=== PATIENT | male | born 2000 | race Caucasian/White ===

== ENCOUNTER 2019-05-31 22:15 | Emergency (ER) | payer OTHER ==
[~2019-05-31] VITALS: Ht 185 cm; Wt 61.4 kg
--- NOTE | 2019-05-31 22:30 | NUR ---
urine specimen requested, pt denies being able to void at this time.
[2019-05-31 22:49] LABS: BASOPHILS % (AUTO) 0 % (0-10); EOSINOPHILS % (AUTO) 1 % (0-10); HEMATOCRIT 42 % (40-54); HEMOGLOBIN 14.8 G/DL (13.3-17.7); LYMPHOCYTES # (AUTO) 1.5 X 10^3 (1.0-4.0); LYMPHOCYTES % (AUTO) 25 % (12-44); MEAN CORPUSCULAR HEMOGLOBIN 31 PG (25-34); MEAN CORPUSCULAR HGB CONC 36 G/DL (32-36); MEAN CORPUSCULAR VOLUME 88 FL (80-99); MEAN PLATELET VOLUME 10.2 FL (7.4-10.4); MONOCYTES # (AUTO) 0.8 X 10^3 (0.0-1.0); MONOCYTES % (AUTO) 13 % (0-12); NEUTROPHILS # (AUTO) 3.8 X 10^3 (1.8-7.8); NEUTROPHILS % (AUTO) 62 % (42-75); PLATELET COUNT 235 10^3/uL (130-400); WHITE BLOOD COUNT 6.1 10^3/uL (4.3-11.0)
--- NOTE | 2019-05-31 22:59 | ED Syncope ---
General Chief Complaint: Dizziness/Syncope Stated Complaint: PASSED OUT AT HOME Nursing Triage Note: syncopal episode approx. 2144. denies injury Source of Information: Patient Exam Limitations: No Limitations History of Present Illness Date Seen by Provider: May 31, 2019 Time Seen by Provider: 22:45 Initial Comments Patient presents to ER by private conveyance with aunt and father and chief complaint that about an hour ago he had a syncopal episode while standing up to urinate. He says been having some intermittent sharp pains in his right inguinal him and one occurred just prior to passing out. 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 He is not having any nausea. He's had no abdominal surgeries. He has no significant medical history. He does not take any medicines. He denies drinking, smoking, tobacco, recreational drugs. He thinks he was only out for a few seconds. He says his uncle came down the cat when he heard him fall. He was able to stand up on his own without any assistance. He has never had anything like this before. No history of kidney stones. No hematuria or painful urination. No constipation diarrhea or nausea. Allergies and Home Medications Allergies Coded Allergies: No Known Drug Allergies (Unverified , 05/31/19) Home Medications No Active Prescriptions or Reported Meds Patient Home Medication List Home Medication List Reviewed: Yes Review of Systems Constitutional: No chills, No diaphoresis EENTM: No ear discharge, No ear pain Respiratory: No cough, No short of breath Cardiovascular: No chest pain, No edema Gastrointestinal: abdominal pain; No constipation, No diarrhea, No nausea Genitourinary: No discharge, No dysuria Musculoskeletal: No back pain, No joint pain Skin: No pruritus, No rash Psychiatric/Neurological: Denies Headache, Denies Numbness, Denies Paresthesia Past Ttscbjr-Siclna-Egiojd Hx Patient Social History Alcohol Use: Denies Use Recreational Drug Use: No Smoking Status: Never a Smoker 2nd Hand Smoke Exposure: No Recent Foreign Travel: No Contact w/Someone Who Travel: No Recent Infectious Disease Expo: No Recent Hopitalizations: No Physical Abuse: No Sexual Abuse: No Mistreated: No Fear: No Immunizations Up To Date Tetanus Booster (TDap): Less than 5yrs PED Vaccines UTD: Yes Seasonal Allergies Seasonal Allergies: No Past Medical History Surgeries: No Respiratory: No Cardiac: No Neurological: No Genitourinary: No Gastrointestinal: No Musculoskeletal: No Endocrine: No HEENT: No Cancer: No Psychosocial: No Integumentary: No Blood Disorders: No Physical Exam Vital Signs Vital Signs - First Documented 05/31/19 22:28 Temp 36.5 Pulse 91 Resp 18 B/P (MAP) 143/85 O2 Delivery Room Air Capillary Refill : Height, Weight, BMI Height: '" Weight: lbs. oz. kg; 17.00 BMI Method: General Appearance: No Apparent Distress, WD/WN HEENT: Normal ENT Inspection, Pharynx Normal Neck: Full Range of Motion, Normal Inspection, Non Tender Cardiovascular: Regular Rate, Rhythm, No Edema, Normal Peripheral Pulses Respiratory: Chest Non Tender, Lungs Clear, Normal Breath Sounds, No Accessory Muscle Use Gastrointestinal: Normal Bowel Sounds, No Organomegaly, Non Tender, Soft, Other (small palpable indirect hernia right inguinal canal) Extremities: Normal Capillary Refill, Normal Inspection, No Pedal Edema Neurologic/Psychiatric: Alert, Oriented x3 Cranial Nerves: Normal Hearing, Normal Speech Motor/Sensory: No Motor Deficit, No Sensory Deficit Skin: Normal Color, Warm/Dry Progress/Results/Core Measures Results/Orders Lab Results Laboratory Tests Test 05/31/19 22:40 05/31/19 23:35 Range/Units White Blood Count 6.1 4.3-11.0 10^3/uL Red Blood Count 4.73 4.35-5.85 10^6/uL Hemoglobin 14.8 13.3-17.7 G/DL Hematocrit 42 40-54 % Mean Corpuscular Volume 88 80-99 FL Mean Corpuscular Hemoglobin 31 25-34 PG Mean Corpuscular Hemoglobin Concent 36 32-36 G/DL Red Cell Distribution Width 12.0 10.0-14.5 % Platelet Count 235 130-400 10^3/uL Mean Platelet Volume 10.2 7.4-10.4 FL Neutrophils (%) (Auto) 62 42-75 % Lymphocytes (%) (Auto) 25 12-44 % Monocytes (%) (Auto) 13 H 0-12 % Eosinophils (%) (Auto) 1 0-10 % Basophils (%) (Auto) 0 0-10 % Neutrophils # (Auto) 3.8 1.8-7.8 X 10^3 Lymphocytes # (Auto) 1.5 1.0-4.0 X 10^3 Monocytes # (Auto) 0.8 0.0-1.0 X 10^3 Eosinophils # (Auto) 0.0 0.0-0.3 10^3/uL Basophils # (Auto) 0.0 0.0-0.1 10^3/uL Sodium Level 137 135-145 MMOL/L Potassium Level 3.2 L 3.6-5.0 MMOL/L Chloride Level 103 98-107 MMOL/L Carbon Dioxide Level 23 21-32 MMOL/L Anion Gap 11 5-14 MMOL/L Blood Urea Nitrogen 11 7-18 MG/DL Creatinine 0.99 0.60-1.30 MG/DL Estimat Glomerular Filtration Rate > 60 BUN/Creatinine Ratio 11 Glucose Level 193 H 70-105 MG/DL Calcium Level 9.1 8.5-10.1 MG/DL Corrected Calcium 8.7 8.5-10.1 MG/DL Total Bilirubin 0.5 0.1-1.0 MG/DL Aspartate Amino Transf (AST/SGOT) 18 5-34 U/L Alanine Aminotransferase (ALT/SGPT) 28 0-55 U/L Alkaline Phosphatase 87 40-136 U/L Troponin I < 0.028 <0.028 NG/ML C-Reactive Protein High Sensitivity 1.04 H 0.00-0.50 MG/DL B-Type Natriuretic Peptide < 10.0 <100.0 PG/ML Total Protein 7.0 6.4-8.2 GM/DL Albumin 4.5 3.2-4.5 GM/DL Urine Color YELLOW Urine Clarity CLEAR Urine pH 6.0 5-9 Urine Specific [place] 1.025 H 1.016-1.022 Urine Protein NEGATIVE NEGATIVE Urine Glucose (UA) NEGATIVE NEGATIVE Urine Ketones NEGATIVE NEGATIVE Urine Nitrite NEGATIVE NEGATIVE Urine Bilirubin NEGATIVE NEGATIVE Urine Urobilinogen 0.2 < = 1.0 MG/DL Urine Leukocyte Esterase NEGATIVE NEGATIVE Urine RBC (Auto) NEGATIVE NEGATIVE Urine RBC NONE /HPF Urine WBC 0-2 /HPF Urine Squamous Epithelial Cells RARE /HPF Urine Crystals PRESENT H /LPF Urine Amorphous Sediment FEW KAYA URATES H /LPF Urine Bacteria TRACE /HPF Urine Casts NONE /LPF Urine Mucus SMALL H /LPF Urine Culture Indicated NO Urine Opiates Screen NEGATIVE NEGATIVE Urine Oxycodone Screen NEGATIVE NEGATIVE Urine Methadone Screen NEGATIVE NEGATIVE Urine Propoxyphene Screen NEGATIVE NEGATIVE Urine Barbiturates Screen NEGATIVE NEGATIVE Ur Tricyclic Antidepressants Screen NEGATIVE NEGATIVE Urine Phencyclidine Screen NEGATIVE NEGATIVE Urine Amphetamines Screen NEGATIVE NEGATIVE Urine Methamphetamines Screen NEGATIVE NEGATIVE Urine Benzodiazepines Screen NEGATIVE NEGATIVE Urine Cocaine Screen NEGATIVE NEGATIVE Urine Cannabinoids Screen NEGATIVE NEGATIVE My Orders Orders - ALEXANDRO MILTON Ua Culture If Indicated (05/31/19 22:16) Drug Screen Stat (Urine) (05/31/19 22:16) Ekg Tracing (05/31/19 22:29) Continuous Ekg Monitoring (05/31/19 22:29) Cbc With Automated Diff (05/31/19 22:29) Comprehensive Metabolic Panel (05/31/19 22:29) Hs C Reactive Protein (05/31/19 22:29) Chest 1 View, Ap/Pa Only (05/31/19 22:29) Troponin I (05/31/19 22:29) BNP (05/31/19 22:29) Orthostatic Vital Signs (Adult (05/31/19 22:57) Vital Signs/I&O 05/31/19 05/31/19 22:28 23:02 Temp 36.5 Pulse 91 80 71 77 Resp 18 B/P (MAP) 143/85 140/72 (94) 147/73 (97) 140/62 (88) O2 Delivery Room Air Progress Progress Note #1: Time: 23:15 Progress Note Patient seems to have had a vasovagal syncopal event during urinating and was having some pain in his right inguinal canal that is consistent with a small, spontaneously reducible indirect hernia. We'll check labs including a BNP, troponin. EKG demonstrates no ST changes. Continue on the monitor technician. Orthostatics were unremarkable. Progress Note #2: Time: 23:28 Progress Note [place] syncope score -2 points. Very low risk. 0.7% risk of 30-day serious adverse event. Will probably have him follow-up with primary care office for further evaluation. If his right inguinal pain persists then they can make a referral to general surgery. Initial ECG Impression Date: May 31, 2019 Initial ECG Impression Time: 22:30 Initial ECG Rate: 70 Initial ECG Rhythm: Normal Sinus Initial ECG Intervals: Normal Initial ECG Impression: Normal, Nonspecific Changes Initial ECG Comparisson: No Previous ECG Available Comment Sinus rhythm with no ST elevation or depression. Diagnostic Imaging Diagonstic Imaging: Xray Plain Films/CT/US/NM/MRI: chest (1v) Comments No acute cardiopulmonary process noted. Reviewed: Reviewed by Me Departure Impression Primary Impression: Syncopal episodes Qualified Codes: R55 - Syncope and collapse Additional Impression: Right inguinal hernia Disposition: HOME, SELF-CARE Condition: Stable Departure-Patient Inst. Decision time for Depature: 23:57 Referrals: NO,LOCAL PHYSICIAN (PCP) Primary Care Physician MILADIS LOTT (Family) Primary Care Physician Patient Instructions: Syncope (Fainting) (DC) Add. Discharge Instructions: I don't know if your syncopal episode relates to the right inguinal hernia but I suggest you follow-up in one to 2 weeks with your primary care doctor for further evaluation. If it begins to be a pattern then you can follow-up in the ER sooner. If you start to have difficulty passing stools or increasing, more consistent pain in your right inguinal canal then you may also want to follow-up with your primary care doctor sooner or return to the ER if you cannot wait. All discharge instructions reviewed with patient and/or family. Voiced understanding. Scripts No Active Prescriptions or Reported Meds ALEXANDRO MILTON May 31, 2019 22:59
[2019-05-31 23:02] VITALS: BP_SYST 140; BP_SYST 147; BP_DIAS 62; BP_DIAS 72; BP_DIAS 73
[2019-05-31 23:08] LABS: ALANINE AMINOTRANSFERASE 28 U/L (0-55); ALBUMIN 4.5 GM/DL (3.2-4.5); ALKALINE PHOSPHATASE 87 U/L (40-136); BILIRUBIN,TOTAL 0.5 MG/DL (0.1-1.0); BUN/CREATININE RATIO 11; CALCIUM 9.1 MG/DL (8.5-10.1); CARBON DIOXIDE 23 MMOL/L (21-32); CHLORIDE 103 MMOL/L (98-107); CREATININE SERUM 0.99 MG/DL (0.60-1.30); GFR ESTIMATED > 60; GLUCOSE 193 MG/DL (70-105); POTASSIUM 3.2 MMOL/L (3.6-5.0); SODIUM 137 MMOL/L (135-145)
[2019-05-31 23:41] LABS: BILIRUBIN,URINE NEGATIVE (NEGATIVE); CLARITY,URINE CLEAR; COLOR,URINE YELLOW; GLUCOSE, URINE (UA) NEGATIVE (NEGATIVE); KETONES,URINE NEGATIVE (NEGATIVE); LEUKOCYTE ESTERASE ,URINE NEGATIVE (NEGATIVE); NITRITE,URINE NEGATIVE (NEGATIVE); PROTEIN,URINE NEGATIVE (NEGATIVE)
[2019-05-31 23:50] LABS: AMORPHOUS SEDIMENT,UR FEW AMOR URATES /LPF; BACTERIA,URINE TRACE /HPF; SQUAMOUS EPITHELIAL CELL,UR RARE /HPF; WBC,URINE 0-2 /HPF
[2019-05-31 23:52] LABS: AMPHETAMINE SCREEN, URINE NEGATIVE (NEGATIVE); BARBITURATE SCREEN URINE NEGATIVE (NEGATIVE); BENZODIAZEPINES SCREEN URINE NEGATIVE (NEGATIVE); CANNABINOID SCREEN, URINE NEGATIVE (NEGATIVE); COCAINE SCREEN URINE NEGATIVE (NEGATIVE); METHADONE STAT NEGATIVE (NEGATIVE); METHAMPHETAMINE SCREEN URINE S NEGATIVE (NEGATIVE); OPIATE SCREEN URINE NEGATIVE (NEGATIVE); OXYCODONE STAT NEGATIVE (NEGATIVE); PROPOXYPHENE STAT NEGATIVE (NEGATIVE); TRICYCLIC ANTIDEPRESSANTS SCRE NEGATIVE (NEGATIVE)
--- NOTE | 2019-06-01 06:23 | Diagnostic Imaging Report ---
INDICATION: Syncope. FINDINGS: Right perihilar infiltrate is suspicious for pneumonia. This does not obscure the right heart border and is probably within the right lower lobe but precise lobation cannot be determined its frontal view. The left lung is clear. IMPRESSION: Infiltrate likely developing pneumonia right perihilar distribution. Dictated by: Dictated on workstation # [id number]
== END 2019-06-01 00:08 | disposition home or self-care (01) ==
LOC: ER 22:18
DX: R55 Syncope and collapse (principal); K40.90 Unilateral inguinal hernia, without obstruction or gangrene, not specified as recurrent
CPT/HCPCS: 36415; 71045; 80053; 80306; 81000; 83880; 84484; 85025; 86141; 93005; 93041

== ENCOUNTER 2020-03-13 14:13 | Emergency (ER) | payer OTHER ==
[~2020-03-13] VITALS: Ht 182 cm; Wt 63.5 kg
--- NOTE | 2020-03-13 14:28 | ED Upper Extremity ---
General Chief Complaint: Upper Extremity Stated Complaint: R HAND LAC Source: patient Exam Limitations: no limitations History of Present Illness Date Seen by Provider: Mar 13, 2020 Time Seen by Provider: 14:28 Initial Comments To ER with right ring finger laceration. He was on a service called. He works for [employer]. He was working on a combine and cut his right finger, the ring finger, between a ratchet and a sharp piece of square metal. Tetanus is not up-to-date. Onset: just prior to arrival Severity: moderate Pain/Injury Location: right 4th finger Method of Injury: direct blow Modifying Factors: Worse With Movement Allergies and Home Medications Allergies Coded Allergies: No Known Drug Allergies (Unverified , 05/31/19) Home Medications Cephalexin 500 Mg Capsule, 500 MG PO QID Prescribed by: JOSE DEGROOT on 03/13/20 1509 Hydrocodone/Acetaminophen 1 Each Tablet, 1 EACH PO Q4H PRN for PAIN-MODERATE (5- 7) Prescribed by: JOSE DEGROOT on 03/13/20 1510 Patient Home Medication List Home Medication List Reviewed: Yes Review of Systems Constitutional: see HPI EENTM: see HPI Respiratory: no symptoms reported Cardiovascular: no symptoms reported Genitourinary: no symptoms reported Musculoskeletal: no symptoms reported Skin: see HPI Psychiatric/Neurological: No Symptoms Reported Past Mikdovo-Iwbxda-Cejhli Hx Patient Social History 2nd Hand Smoke Exposure: No Recent Foreign Travel: No Contact w/Someone Who Travel: No Recent Hopitalizations: No Immunizations Up To Date Tetanus Booster (TDap): Less than 5yrs PED Vaccines UTD: Yes Seasonal Allergies Seasonal Allergies: No Past Medical History Surgeries: No Respiratory: No Cardiac: No Neurological: No Genitourinary: No Gastrointestinal: No Musculoskeletal: No Endocrine: No HEENT: No Cancer: No Psychosocial: No Integumentary: No Blood Disorders: No Physical Exam Vital Signs Vital Signs - First Documented 03/13/20 14:17 Temp 36.9 Pulse 80 Resp 20 B/P (MAP) 120/78 (92) Pulse Ox 98 O2 Delivery Room Air Capillary Refill : Height, Weight, BMI Height: '" Weight: lbs. oz. kg; 17.00 BMI Method: General Appearance: WD/WN, no apparent distress Respiratory: no respiratory distress, no accessory muscle use Shoulder: normal inspection, non-tender Elbow/Forearm: normal inspection, non-tender Wrist: Yes non-tender Hand: laceration (There is a laceration from the left side to the right side of the dorsal aspect of the distal phalanx on the right. Depth is down through the bone to the volar periosteum. A digital block was done using 4 mL of 1% lidocaine without epinephrine. Wound was then irrigated copiously with 500 mL of chlorhexidine/saline solution. No foreign bodies were identified. This was sutured gently back into place with 2 sutures through the nail plate and one suture through either side of the lateral paronychia. The very distal aspect of the pad does retain brisk capillary refill after suturing.) Neurologic/Psychiatric: alert, normal mood/affect, oriented x 3 Skin: normal color, warm/dry Progress/Results/Core Measures Results/Orders My Orders Orders - JOSE DEGROOT APRN Lidocaine 1% Inj 20 Ml (Xylocaine 1% Inj (03/13/20 14:30) Hand, Right, 3 Views (03/13/20 14:26) Dipht,Pertuss(Acell),Tet Adult (Boostrix (03/13/20 15:15) Ceftriaxone For Im Use (Rocephin For Im (03/13/20 15:15) Lidocaine 1% Inj 20 Ml (Xylocaine 1% Inj (03/13/20 15:15) Medications Given in ED Current Medications Medications Dose Ordered Sig/Gabo Route Start Time Stop Time Status Last Admin Dose Admin Lidocaine HCl 20 ml ONCE ONCE INJ 03/13/20 14:30 03/13/20 14:31 DC 03/13/20 14:30 20 ML Vital Signs/I&O 03/13/20 14:17 Temp 36.9 Pulse 80 Resp 20 B/P (MAP) 120/78 (92) Pulse Ox 98 O2 Delivery Room Air Departure Impression Primary Impression: Finger laceration Qualified Codes: S61.314A - Laceration without foreign body of right ring finger with damage to nail, initial encounter Additional Impression: Open fracture of finger Disposition: HOME, SELF-CARE Condition: Stable Departure-Patient Inst. Decision time for Depature: 15:05 Referrals: NO,LOCAL PHYSICIAN (PCP) Primary Care Physician MILADIS LOTT (Family) Primary Care Physician HERNANDO DICKSON MD, MICHAEL P MD Patient Instructions: Common Finger Injuries Add. Discharge Instructions: 1. 1. Call an orthopedic surgeon of your choosing tomorrow to make an appointment to be seen for follow-up. Preferably this week or next week. If you are unable to be seen before the weekend then return to the emergency room for wound check so that we can reevaluate this and redressed the wound on Wednesday at a time at your convenience. In the meantime take the antibiotics and pain medication as directed. Leave the bandage on clean and dry at all times. All discharge instructions reviewed with patient and/or family. Voiced understanding. Scripts Hydrocodone/Acetaminophen (Hydrocodone-Acetamin 5-325 mg) 1 Each Tablet 1 EACH PO Q4H PRN for PAIN-MODERATE (5-7), #14 TAB Prov: JOSE EDGROOT APRN 03/13/20 Cephalexin (Keflex) 500 Mg Capsule 500 MG PO QID, #20 CAP Prov: JOSE DEGROOT APRN 03/13/20 JOSE DEGROOT APRN Mar 13, 2020 14:28
[2020-03-13] MEDS ORDERED: LIDOCAINE 1% INJ 20 ML 20 ML VIAL INJ ONE ×2 (14:30→15:15)
[2020-03-13] MEDS ORDERED: ACHD5005 PO (15:09)
[2020-03-13] MEDS ORDERED: CEPH-507 PO (15:09)
[2020-03-13] MEDS ORDERED: cefTRIAXone 1,000 MG/2.86 ml vial (IM ONLY) IM SCH (15:15)
[2020-03-13] MEDS ORDERED: TETANUS,DIPTH,PERTUSS P/F (BOOSTRIX) 0.5 ML VIAL IM ONE (15:15)
--- NOTE | 2020-03-13 15:25 | Diagnostic Imaging Report ---
INDICATION: Crush injury. FINDINGS: There is a horizontal fracture through the midportion of the terminal tuft of the 4th finger. No retained opaque foreign body. IMPRESSION: The 4th finger distal phalanx fracture involves the tuft. Dorsal soft tissue injury overlying the fracture is such that an open fracture could not be excluded. Dictated by: Dictated on workstation # [id number]
[2020-03-13] MEDS ORDERED: HYDROcodone/APAP 5 MG/325 MG (LORTAB) TAB PO ONE (15:30)
[2020-03-13 15:40] VITALS: BP 115/80
== END 2020-03-13 15:40 | disposition home or self-care (01) ==
LOC: EDUNIT# 14:13 → ER 14:14
DX: S62.634B Displaced fracture of distal phalanx of right ring finger, initial encounter for open fracture (principal); Z23 Encounter for immunization; W31.1XXA Contact with metalworking machines, initial encounter
CPT/HCPCS: 11720; 26418; 26755; 29130; 73130; 90715

== ENCOUNTER 2020-03-15 11:20 | Emergency (ER) | payer OTHER ==
[~2020-03-15] VITALS: Ht 182 cm; Wt 63.5 kg
[~2020-03-15 11:20] MED LIST: ACHD5005 PO; CEPH-507 PO
[2020-03-15 11:34] VITALS: BP 136/84
[2020-03-15] MEDS ORDERED: oxyCODONE/APAP 5/325MG (PERCOCET 5) TABLET PO ONE (12:15)
[2020-03-15] MEDS ORDERED: OXYC1TAB87 PO (12:29)
--- NOTE | 2020-03-15 12:30 | ED Suture Removal/Wound Check ---
Suture/Wound Re-check General Appearance: WD/WN, no apparent distress Skin Exam: warm/dry, cyanosis Comments The dressing was removed, there is a very small area of blanched devascularized tissue to the very tip of the pad of the finger. Patient states he might have follow-up with Dr. Darden on Wednesday if insurance approves it since this is Workman's Comp. I went outside with patient and showed a his mom the small area of devascularized tissue before rebandaging it. He states hydrocodone has given him a headache. Will switch to oxycodone. Continue the antibiotics. Physical Exam Vital Signs Vital Signs - First Documented Capillary Refill : General Appearance: WD/WN, no apparent distress Respiratory: no respiratory distress, no accessory muscle use Neurologic/Psychiatric: alert, normal mood/affect, oriented x 3 Skin: normal color, warm/dry Skin Problem Location: upper extremities Skin Problem Character: other Departure Impression Primary Impression: Open fracture of finger Additional Impression: Devascularized fingertip Disposition: HOME, SELF-CARE Condition: Stable Departure-Patient Inst. Decision time for Depature: 12:27 Referrals: NO,LOCAL PHYSICIAN (PCP) Primary Care Physician Patient Instructions: Wound Care (DC) Add. Discharge Instructions: 1. Try using the Percocet instead of the hydrocodone. This may give you less of a headache. Alternatively you can just use Tylenol and ibuprofen if that adequately controls your pain. Take antibiotics as directed. Keep this dressing on and clean and dry at all times. You could roll a condom over the finger to help keep it dry during showering. If you are unable to be seen by Dr. Darden on Wednesday then return to the emergency room here for dressing change. All discharge instructions reviewed with patient and/or family. Voiced understanding. Scripts Oxycodone HCl/Acetaminophen (Percocet 5-325 mg Tablet) 1 Each Tablet 1 TAB PO Q4H for PAIN-MODERATE MDD 6 TABS for 7 Days, #10 TAB Prov: JOSE DEGROOT APRN 03/15/20 Work/School Note: Work Release Form Date Seen in the Emergency Department: Mar 15, 2020 Return to Work: Mar 15, 2020 Restrictions: Need Release from Doctor Copy Copies To 1: JERMAINE DARDEN PETER J APRN Mar 15, 2020 12:30
== END 2020-03-15 12:33 | disposition home or self-care (01) ==
LOC: EDUNIT# 11:20 → ER 11:22
DX: S62.609D Fracture of unspecified phalanx of unspecified finger, subsequent encounter for fracture with routine healing (principal); X58.XXXD Exposure to other specified factors, subsequent encounter
CPT/HCPCS: 99283; A6223